=== PATIENT | female | born 1955 | race Caucasian/White ===

== ENCOUNTER 2017-10-03 17:59 | Emergency (ER) | payer OTHER ==
[~2017-10-03] VITALS: Ht 165.1 cm; Wt 59.0 kg
--- NOTE | ~2017-10-03 | EKG ---
[address] [address] ELECTROCARDIOGRAM REPORT Name: TWAN MCMAHON [id number] Admission: 10/03/17 Attend Phys: Discharge: 10/03/17 Date of : 53 Report #: [id number] THIS REPORT FOR: //name// [facility] ED Test Date: 2017-10-03 Test Time: 18:02:15 Pat Name: TWAN MCMAHON Department: Room: Gender: F Telephone Service Adviser: MZOOK : 1955 Requested By: Zuleyma Hughes Order Number: [id number] MD: Ty Barraza Measurements Intervals [place] Rate: 82 P: [place]: QRS: 25 QRSD: 97 T: 3 QT: 429 QTc: 501 Interpretive Statements Normal sinus rhythm No previous ECG available for comparison Electronically Signed On 10-03-2017 21:40:29 CDT by Ty Barraza [email or web address] <ELECTRONICALLY SIGNED> By: Ty Barraza MD 10/03/17 2140 180 1802 Ty Barraza MD /MARTINA
[~2017-10-03 17:59] MED LIST: BENICAR20 MG; NORVASC 5 MG TAB5 MG
[2017-10-03] MEDS ORDERED: PAXIL10 MG PO (18:11)
[2017-10-03] MEDS ORDERED: LOTENSIN40 MG PO (18:12)
[2017-10-03] MEDS ORDERED: NABUMETONE 750750 M1 PO (18:12)
[2017-10-03] MEDS ORDERED: BALSALAZIDE DI750 M1 PO (18:12)
[2017-10-03 18:38] LABS: ABSOLUTE NEUTROPHILS 7.5 thou/uL (1.4-8.2); BASOPHILS 0.4 % (0.0-2.0); EOSINOPHILS 0.9 % (0.0-3.0); HEMATOCRIT 41.5 % (37.0-47.0); HEMOGLOBIN 13.8 gm/dL (12.0-15.0); LYMPHOCYTES 10.1 % (24.0-44.0); MCH 28.6 pg (26.0-34.0); MCHC 33.1 g/dL (28.0-37.0); MCV 86.3 fL (80.0-100.0); MONOCYTES 6.1 % (1.0-8.0); PLATELET COUNT 289 thou/uL (150-400); POLYS 82.5 % (36.0-66.0); RBC 4.81 mil/uL (4.20-5.00); RDW 13.4 % (10.5-14.5); WBC 9.1 thou/uL (4.0-11.0)
[2017-10-03 18:46] LABS: ANION GAP 11 mmol/L (7-16); BUN 9 mg/dL (7-18); CALCIUM 9.5 mg/dL (8.5-10.1); CHLORIDE 104 mmol/L (98-107); CO2 26 mmol/L (21-32); CREATININE 0.7 mg/dL (0.6-1.0); GLUCOSE 138 mg/dL (74-106); POTASSIUM 3.2 mmol/L (3.5-5.1); SODIUM 141 mmol/L (136-145)
[2017-10-03 18:54] LABS: ALBUMIN 3.9 g/dL (3.4-5.0); DIRECT BILIRUBIN < 0.1 mg/dL (<0.1-0.3); LIPASE 196 U/L (73-393); SGOT 28 U/L (15-37); SGPT 29 U/L (30-65); TOTAL BILIRUBIN 0.3 mg/dL (<0.1-1.0); TOTAL PROTEIN 7.9 g/dL (6.4-8.2); TROPONIN-I < 0.04 ng/mL (<0.06)
[2017-10-03] MEDS ORDERED: ASPIRIN81 M2 PO (19:07)
[2017-10-03 19:45] LABS: URINE BILIRUBIN NEGATIVE (Negative); URINE BLOOD TRACE (Negative); URINE CLARITY CLEAR; URINE COLOR YELLOW; URINE GLUCOSE-RANDOM* NEGATIVE (Negative); URINE KETONES 1+ (Negative); URINE LEUKOCYTES NEGATIVE (Negative); URINE NITRITE NEGATIVE (Negative); URINE PROTEIN (DIPSTICK) TRACE (Negative); URINE UROBILINOGEN 0.2 E.U./dl (0.2-1.0)
[2017-10-03 20:20] VITALS: BP 134/71
== END 2017-10-03 20:20 | disposition home or self-care (01) ==
LOC: ER 17:59
PROVIDERS: Emergency Medicine
DX: G45.4 Transient global amnesia (principal); E87.6 Hypokalemia; I10 Essential (primary) hypertension

== ENCOUNTER → 2018-07-10 | Outpatient (CLI) | payer OTHER ==
[~2018-07-10] MED LIST changes: +ASPIRIN81 M2 PO; +BALSALAZIDE DI750 M1 PO; +LOTENSIN40 MG PO; +NABUMETONE 750750 M1 PO; +PAXIL10 MG PO
--- NOTE | 2018-07-10 11:48 | EXE ---
[facility] Bridget Mejia [place] [address] STRESS ECHOCARDIOGRAM Name: TWAN MCMAHON [id number] Admission: 07/10/18 Attend Phys: Karlos Nichols, Discharge: Date of : 53 Date of Service: 07/10/18 1147 Report #: [id number] THIS REPORT FOR: //name// APPROVED REPORT Study performed: 07/10/2018 09:12:00 Exam: Stress Echocardiogram Indication: Hyperlipidemia, Hypertension Patient Location: Out-Patient Stress Nurse: Gwen Bowers RN Room #: Echo lab 2 Status: routine Ht: 5 ft 5 in HR: 62 bpm BP: 148/98 mmHg Rhythm: NSR Medical History Medical History: HTN, Hyperlipidemia Cardiac Risk Factors: HTN, Hyperlipidemia, FHX of CAD Exercise History: Physically active Procedure The patient underwent an Exercise Stress Test using the Cody Protocol. Blood pressure, heart rate, and EKG were monitored. An Echocardiogram was performed by case technician in four stages in quad fashion. At peak stress, four selected images were obtained and placed side by side with resting images for comparison. Stress Test Details Stress Test: Exercise stress testing was performed using a Cody protocol. HR Resting HR: 62 bpm Max Heart Rate (APMHR): 156 bpm Max HR Achieved: 144 bpm Target HR (85% APMHR): 132 bpm % of APMHR: 92 Recovery HR: 71 bpm HR response to stress: Normal HR response to stress BP Resting BP: 148/98 mmHg Max BP: 162/100 mmHg Recovery BP: 140/82 mmHg BP response to stress: Normal blood pressure response to [facility] [address] [place] [address] STRESS ECHOCARDIOGRAM Name: TWAN MCMAHON Room #: REG CL [facility]#: [id number] Admission: 07/10/18 Attend Phys: Karlos Nichols, Discharge: Date of : 53 Date of Service: 07/10/18 1147 Report #: [id number] stress. ECG Clinical Reason for Termination: Maximal effort Exercise duration: 9 min sec Highest Stage Achieved: Stage 3: 3.4 mph at 14% grade. Exercise capacity: 10.4 METs Overall Exercise Capacity for Age: Normal Stress ECG Conclusion 1. Subjectively negative for ischemia 2. Electrocardiographically sugestive of ischemia but some baseline abnormalities noted 3. Satisfactory functional capacity Pre-Stress Echo The resting Echocardiogram showed normal left ventricular contractility with an estimated Ejection Fraction of about >55%. Post-Stress Echo The stress Echocardiogram showed normal left ventricular contractility with an estimated Ejection Fraction of about 65-70%. Clinical Normal augmentation of myocardial wall segments using a 17 segment model. Conclusion Clinical Response: Non-ischemic Exercise Capacity: Average Stress ECG Response: Abnormal Stress Echo Images: Non-ischemic 1. Low Risk Study No prior study available for comparison. Other Information Study Quality: Good <Conclusion> 1. Low Risk Study <ELECTRONICALLY SIGNED> By: Phong Padron MD 07/10/18 1147 1147 1147 Phong Padron MD /INF
== END ==
LOC: CV 07:31
DX: I10 Essential (primary) hypertension (principal); E78.5 Hyperlipidemia, unspecified; R93.1 Abnormal findings on diagnostic imaging of heart and coronary circulation

== ENCOUNTER 2019-09-21 12:06 | Emergency (ER) | payer OTHER ==
[~2019-09-21] VITALS: Ht 165.1 cm; Wt 56.7 kg
[2019-09-21 12:29] LABS: URINE BILIRUBIN NEGATIVE (Negative); URINE BLOOD 1+ (Negative); URINE CLARITY CLEAR; URINE COLOR YELLOW; URINE GLUCOSE-RANDOM* NEGATIVE (Negative); URINE KETONES NEGATIVE (Negative); URINE LEUKOCYTES-REFLEX 1+ (Negative); URINE NITRITE-REFLEX NEGATIVE (Negative); URINE PROTEIN (DIPSTICK) TRACE (Negative); URINE SPECIFIC GRAVITY >= 1.030 (1.005-1.035); URINE UROBILINOGEN 0.2 E.U./dl (0.2-1.0)
[2019-09-21 12:39] LABS: CASTS None Seen /LPF (None Seen); MUCUS 4-6 Moderate strn/LPF (None Seen); SQUAMOUS 4-10 Moderate /LPF (0-3)
[2019-09-21 12:40] LABS: URINE RBC 3-10 Few /HPF (0-2); URINE WBC-REFLEX 0-5 Rare /HPF (0-5)
[2019-09-21 12:41] LABS: BACTERIA-REFLEX 1-9 Few /HPF (None Seen); CRYSTALS None Seen /LPF (None Seen)
[2019-09-21 13:07] LABS: ABSOLUTE NEUTROPHILS 12.8 thou/uL (1.4-8.2); BASOPHILS 0.2 % (0.0-2.0); EOSINOPHILS 0.5 % (0.0-3.0); HEMATOCRIT 41.3 % (37.0-47.0); HEMOGLOBIN 13.4 gm/dL (12.0-15.0); LYMPHOCYTES 5.6 % (24.0-44.0); MCH 28.3 pg (26.0-34.0); MCHC 32.5 g/dL (28.0-37.0); MCV 87.1 fL (80.0-100.0); MONOCYTES 6.9 % (1.0-8.0); PLATELET COUNT 322 thou/uL (150-400); POLYS 86.8 % (36.0-66.0); RBC 4.75 mil/uL (4.20-5.00); RDW 13.6 % (10.5-14.5); WBC 14.8 thou/uL (4.0-11.0)
[2019-09-21 13:15] LABS: CALCIUM 9.7 mg/dL (8.5-10.1)
[2019-09-21 13:21] LABS: ALBUMIN 4.1 g/dL (3.4-5.0); TOTAL BILIRUBIN 0.4 mg/dL (<0.1-1.0); TOTAL PROTEIN 7.5 g/dL (6.4-8.2)
[2019-09-21 14:09] VITALS: BP 137/68
== END 2019-09-21 14:09 | disposition home or self-care (01) ==
LOC: ER 12:06
PROVIDERS: Nurse Practitioner
DX: N30.01 Acute cystitis with hematuria (principal); I10 Essential (primary) hypertension; Z79.82 Long term (current) use of aspirin; Z79.899 Other long term (current) drug therapy

== ENCOUNTER → 2019-11-29 | Outpatient (CLI) | payer OTHER | LOC: BC 08:16 | PROVIDERS: ATTEND Family Medicine | DX: Z12.31 Encounter for screening mammogram for malignant neoplasm of breast (principal) ==

== ENCOUNTER → 2020-09-28 | Outpatient (CLI) | payer OTHER | LOC: RAD 08:36 | PROVIDERS: ATTEND Family Medicine | DX: Z13.6 Encounter for screening for cardiovascular disorders (principal); I25.10 Atherosclerotic heart disease of native coronary artery without angina pectoris; E78.00 Pure hypercholesterolemia, unspecified ==